=== PATIENT | female | born 1970 | race African-American/Black ===

== ENCOUNTER 2021-10-29 14:04 | Inpatient (IN) | payer OTHER ==
[~2021-10-29] VITALS: Ht 167.6 cm; Wt 81.8 kg
[2021-10-29 15:00] LABS: BASOPHILS % (AUTO) 0.8 % (0.0-2.0); EOSINOPHILS % (AUTO) 0.9 % (1.0-6.0); HEMOGLOBIN 12.9 g/dL (12.0-16.0); LYMPHOCYTES % (AUTO) 20.7 % (22.0-44.0); MEAN CORPUSCULAR HEMOGLOBIN 27.7 pg (26.0-34.0); MEAN CORPUSCULAR HGB CONC 33.1 G/dL (31.0-37.0); MEAN CORPUSCULAR VOLUME 84 fL (80-100); MONOCYTES # (AUTO) 0.2 K/uL (0.1-1.0); MONOCYTES % (AUTO) 4.8 % (2.0-9.0); NEUTROPHILS # (AUTO) 3.5 K/uL (1.8-7.7); NEUTROPHILS % (AUTO) 72.8 % (40.0-70.0); PLATELET COUNT (AUTO) 309 K/uL (150-450); RED BLOOD CELL COUNT(AUTO) 4.67 MIL/uL (4.00-5.20); RED CELL DISTRIBUTION WIDTH 15.3 % (11.5-14.5)
[2021-10-29 15:25] LABS: ANION GAP 10 mmol/L (8-16); CALCIUM, TOTAL 9.9 mg/dL (8.8-10.5); CARBON DIOXIDE 29 mmol/L (22-29); CHLORIDE 102 mmol/L (98-107); CREATININE 1.07 mg/dL (0.60-1.30); GLOMERULAR FILTR. RATE CALC > 60 mL/min (>60); GLUCOSE,RANDOM 90 mg/dL (70-110); POTASSIUM 3.3 mmol/L (3.5-5.1); SODIUM SERUM 141 mmol/L (136-145); UREA NITROGEN, BLOOD 16 mg/dL (7-18)
[2021-10-29 15:33] LABS: PROTHROMBIN TIME 10.4 SEC (9.4-11.6)
[2021-10-29 15:33] LABS: APPEARANCE,URINE CLOUDY (CLEAR); BILIRUBIN,URINE NEGATIVE (NEGATIVE); GLUCOSE, URINE (UA) NEGATIVE (NEGATIVE); KETONES,URINE NEGATIVE (NEGATIVE); LEUKOCYTE ESTERASE ,URINE NEGATIVE (NEGATIVE); NITRATE,URINE NEGATIVE (NEGATIVE); OCCULT BLOOD,URINE TRACE (NEGATIVE); PROTEIN,URINE NEGATIVE (NEGATIVE); UROBILINOGEN,URINE 0.2 mg/dL (<=1.0)
[2021-10-29 15:37] LABS: AMPHET/METH SCREEN,URINE NEGATIVE (NEGATIVE); BARBITURATE SCREEN, URINE NEGATIVE (NEGATIVE); BENZODIAZEPINES SCREEN,URINE NEGATIVE (NEGATIVE); CANNABINOID SCREEN,URINE NEGATIVE (NEGATIVE); COCAINE SCREEN,URINE NEGATIVE (NEGATIVE); METHADONE SCREEN, URINE NEGATIVE (NEGATIVE); OPIATE SCREEN,URINE NEGATIVE (NEGATIVE)
[2021-10-29 15:38] LABS: PHENCYCLIDINE SCREEN,URINE NEGATIVE (NEGATIVE)
[2021-10-29 15:42] LABS: B-TYPE NATRIURETIC PEPTIDE 21 pg/mL (0-100)
[2021-10-29 15:50] LABS: ALANINE AMINOTRANSFERASE 38 U/L (12-78); ALBUMIN 4.5 g/dL (3.4-5.0); ALKALINE PHOSPHATASE 69 U/L (46-116); ASPARTATE AMINOTRANSFERASE 33 U/L (15-37); BILIRUBIN,TOTAL 0.5 mg/dL (0.1-1.0); CREATINE KINASE, TOTAL ONLY 250 U/L (26-192); TOTAL PROTEIN, SERUM 8.5 g/dL (6.4-8.2)
[2021-10-29 15:59] LABS: BACTERIA,URINE None Seen /HPF (None Seen); RBC,URINE 0-2 /HPF (0-2); WBC,URINE None Seen /HPF (0-5)
[2021-10-29 16:00] LABS: SQUAMOUS EPITHELIAL CELL,UR Moderate /LPF (None Seen)
[2021-10-29] MEDS ORDERED: POTASSIUM CHLORIDE 20 MEQ ER TABLET PO ONE (17:00)
[2021-10-29] MEDS ORDERED: SODIUM CHLORIDE 0.9% 1,000 ML IV ONE (17:00)
[2021-10-29] MEDS ORDERED: ASPIRIN 81 MG CHEWABLE TABLET PO ONE (17:00)
[2021-10-29] MEDS ORDERED: ONDANSETRON HCL 4 MG/2 ML VIAL IVP PRN (20:00)
[2021-10-29] MEDS ORDERED: MORPHINE SULFATE 2 MG/ML SYRINGE IVP PRN (20:00)
[2021-10-29] MEDS ORDERED: ATORVASTATIN CALCIUM 40 MG TABLET PO ONE (20:00)
[2021-10-29 20:25] LABS: COVID AG,FIA SOURCE NASAL SWAB
[2021-10-29 20:31] LABS: CHOL/HDL RATIO 2.4 (3.9-5.7); CHOLESTEROL 211 mg/dL (131-200); HDL CHOLESTEROL 89 mg/dL (40-60); LDL CHOL (CALC.) 113 mg/dL (0-130); TRIGLYCERIDES 47 mg/dL (15-150)
[2021-10-29 20:32] LABS: HEMOGLOBIN A1C 6.3 % (3.8-5.6)
[2021-10-29] MEDS ORDERED: HEPARIN SODIUM 25000 UNITS/D5W 250 ML IV PRN (20:45)
[2021-10-29] MEDS ORDERED: HEPARIN SODIUM,PORCINE 5,000 UNITS/ML VIAL IVP ONE (20:45)
[2021-10-29] MEDS ORDERED: HEPARIN SODIUM,PORCINE 5,000 UNITS/ML VIAL IVP PRN ×2 (20:45)
[2021-10-29 21:07] VITALS: BP 119/87
[2021-10-29 21:08] LABS: BASOPHILS % (AUTO) 1.2 % (0.0-2.0); EOSINOPHILS % (AUTO) 0.4 % (1.0-6.0); HEMATOCRIT 36.5 % (36-46); LYMPHOCYTES # (AUTO) 1.6 K/uL (1.0-4.8); LYMPHOCYTES % (AUTO) 24.9 % (22.0-44.0); MEAN CORPUSCULAR HEMOGLOBIN 27.4 pg (26.0-34.0); MEAN CORPUSCULAR VOLUME 83 fL (80-100); MONOCYTES # (AUTO) 0.3 K/uL (0.1-1.0); MONOCYTES % (AUTO) 5.1 % (2.0-9.0); NEUTROPHILS # (AUTO) 4.5 K/uL (1.8-7.7); NEUTROPHILS % (AUTO) 68.4 % (40.0-70.0); PLATELET COUNT (AUTO) 331 K/uL (150-450); RED BLOOD CELL COUNT(AUTO) 4.39 MIL/uL (4.00-5.20); RED CELL DISTRIBUTION WIDTH 15.2 % (11.5-14.5)
[2021-10-29 21:22] LABS: PROTHROMBIN TIME 10.7 SEC (9.4-11.6)
[2021-10-30] VITALS (15 sets, daily range): BP systolic 72–133; BP diastolic 54–86
[2021-10-30] MEDS ORDERED: INFLUENZA VIRUS VACCINE QVS 2021-22 (6MO+)/PF 60 MCG/0.5 ML SYRINGE IM. ONE (01:45)
[2021-10-30] MEDS: METOPROLOL TARTRATE 25 MG TABLET PO SCH ×2 (07:30→21:00)
[2021-10-30 07:51] LABS: BASOPHILS % (AUTO) 1.1 % (0.0-2.0); EOSINOPHILS % (AUTO) 2.4 % (1.0-6.0); HEMATOCRIT 36.3 % (36-46); LYMPHOCYTES # (AUTO) 1.6 K/uL (1.0-4.8); LYMPHOCYTES % (AUTO) 33.9 % (22.0-44.0); MEAN CORPUSCULAR HEMOGLOBIN 28.1 pg (26.0-34.0); MEAN CORPUSCULAR VOLUME 85 fL (80-100); MONOCYTES # (AUTO) 0.2 K/uL (0.1-1.0); MONOCYTES % (AUTO) 5.2 % (2.0-9.0); NEUTROPHILS # (AUTO) 2.7 K/uL (1.8-7.7); NEUTROPHILS % (AUTO) 57.4 % (40.0-70.0); PLATELET COUNT (AUTO) 279 K/uL (150-450); RED BLOOD CELL COUNT(AUTO) 4.26 MIL/uL (4.00-5.20); RED CELL DISTRIBUTION WIDTH 15.4 % (11.5-14.5)
[2021-10-30] MEDS ORDERED: IOHEXOL 300 MG/ML 150 ML VIAL ONE (08:28)
[2021-10-30] MEDS ORDERED: LIDOCAINE/PF 1% 30 ML VIAL ONE (08:28)
[2021-10-30] MEDS ORDERED: SODIUM BICARBONATE 50 MEQ/50 ML VIAL ONE (08:28)
[2021-10-30] MEDS ORDERED: IOHEXOL 300 MG/ML 100 ML VIAL ONE (08:28)
[2021-10-30] MEDS ORDERED: HEPARIN SODIUM 1000 UNITS/NS 1,000 ML ONE (08:28)
[2021-10-30] MEDS ORDERED: IOHEXOL 300 MG/ML 50 ML VIAL ONE (08:28)
[2021-10-30] MEDS ORDERED: NITROGLYCERIN 50 MG/D5% WATER 250 ML ONE (08:53)
[2021-10-30] MEDS ORDERED: VERAPAMIL HCL 2.5 MG/ML 2 ML VIAL ONE (08:53)
[2021-10-30] MEDS: ASPIRIN 81 MG CHEWABLE TABLET PO SCH (09:00)
[2021-10-30] MEDS ORDERED: FentaNYL CITRATE PF 100 MCG/2 ML VIAL ONE (09:28)
[2021-10-30] MEDS ORDERED: MIDAZOLAM HCL 2 MG/2 ML VIAL ONE (09:28)
[2021-10-30] MEDS ORDERED: HEPARIN SODIUM 1000 UNITS/NS 1,000 ML IARTER ONE (10:00)
[2021-10-30] MEDS ORDERED: VERAPAMIL HCL 2.5 MG/ML 2 ML VIAL IARTER ONE ×2 (10:00→10:15)
[2021-10-30] MEDS ORDERED: NITROGLYCERIN/D5W 50 MG/250 ML IV BOTTLE IARTER ONE ×2 (10:00→10:15)
[2021-10-30] MEDS ORDERED: LIDOCAINE 1% 30 ML/SOD BICARB 8.4% 4 ML SQ ONE (10:00)
[2021-10-30] MEDS ORDERED: HEPARIN SODIUM,PORCINE 5,000 UNITS/ML VIAL IVP ONE (10:00)
[2021-10-30] MEDS ORDERED: IOHEXOL 300 MG/ML 150 ML VIAL IARTER ONE (10:00)
[2021-10-30] MEDS ORDERED: SODIUM CHLORIDE 0.9% 500 ML IV ONE ×2 (10:00→12:15)
[2021-10-30] MEDS ORDERED: MIDAZOLAM HCL 2 MG/2 ML VIAL IVP ONE ×2 (10:15)
[2021-10-30] MEDS ORDERED: FentaNYL CITRATE PF 100 MCG/2 ML VIAL IVP ONE ×2 (10:15)
[2021-10-30] MEDS: ACETAMINOPHEN 325 MG TABLET PO PRN (13:24)
[2021-10-30 15:08] LABS: ANION GAP 4 mmol/L (8-16); CALCIUM, TOTAL 9.2 mg/dL (8.8-10.5); CARBON DIOXIDE 29 mmol/L (22-29); CHLORIDE 104 mmol/L (98-107); CREATININE 0.81 mg/dL (0.60-1.30); GLOMERULAR FILTR. RATE CALC > 60 mL/min (>60); GLUCOSE,RANDOM 111 mg/dL (70-110); POTASSIUM 3.5 mmol/L (3.5-5.1); SODIUM SERUM 137 mmol/L (136-145); UREA NITROGEN, BLOOD 12 mg/dL (7-18)
[2021-10-30] MEDS ORDERED: ATORVASTATIN CALCIUM 40 MG TABLET PO SCH (21:00)
[2021-10-31 02:04] VITALS: BP 99/57
[2021-10-31 04:00] VITALS: BP 138/63
[2021-10-31] MEDS: ASPIRIN 81 MG CHEWABLE TABLET PO SCH (08:05)
[2021-10-31] MEDS: METOPROLOL TARTRATE 25 MG TABLET PO SCH (08:05)
[2021-10-31] MEDS: ACETAMINOPHEN 325 MG TABLET PO PRN (08:06)
[2021-10-31 08:48] VITALS: BP 123/75
[2021-10-31 12:25] VITALS: BP 118/69
[2021-10-31] MEDS ORDERED: ASPI81 PO (14:28)
[2021-10-31] MEDS ORDERED: METO25 PO (14:28)
[2021-10-31] MEDS ORDERED: ATOR40TA71 PO (14:28)
== END 2021-10-31 15:20 | disposition home or self-care (01) | DRG 281 ==
LOC: EMS 14:10 → 5N 20:00
PROVIDERS: ADMIT Internal Medicine; ATTEND Internal Medicine
PROC: 4A023N7 Measurement of Cardiac Sampling and Pressure, Left Heart, Percutaneous Approach (ICD-10-PCS; principal; 2021-10-29)
PROC: B2111ZZ Fluoroscopy of Multiple Coronary Arteries using Low Osmolar Contrast (ICD-10-PCS; 2021-10-29)
DX: I21.4 Non-ST elevation (NSTEMI) myocardial infarction (principal); M62.82 Rhabdomyolysis; E87.6 Hypokalemia; E78.5 Hyperlipidemia, unspecified; Z20.822 Contact with and (suspected) exposure to COVID-19; I10 Essential (primary) hypertension; I24.9 Acute ischemic heart disease, unspecified; Z82.49 Family history of ischemic heart disease and other diseases of the circulatory system; Z83.3 Family history of diabetes mellitus
CPT/HCPCS: 71045; 80048; 80053; 80061; 81001; 82550; 83036; 83880; 84484; 85025; 85610; 85730; 93005; 93306; 99291; J1644; J2250; J3010; J3490; J7030; J7040; Q9967; 36415-L1; 36415-TC; Z7610

== ENCOUNTER 2022-02-23 11:23 | Inpatient (IN) | payer OTHER ==
[~2022-02-23] VITALS: Ht 165.1 cm; Wt 85.8 kg
[~2022-02-23 11:23] MED LIST: ASPI81 PO; ATOR40TA71 PO; METO25 PO
[2022-02-23] MEDS ORDERED: SODIUM CHLORIDE 0.9% 1,000 ML IV ONE (11:30)
[2022-02-23] MEDS ORDERED: CHLO25TA3 PO (11:35)
[2022-02-23] MEDS ORDERED: LOSA-382 PO (11:35)
[2022-02-23] MEDS ORDERED: ESTR-7 PO (11:35)
[2022-02-23] MEDS ORDERED: ADENOSINE 3 MG/ML 2 ML VIAL ONE (11:38)
[2022-02-23 11:41] LABS: BASOPHILS % (AUTO) 0.8 % (0.0-2.0); EOSINOPHILS % (AUTO) 2.2 % (1.0-6.0); HEMATOCRIT 41.2 % (36-46); HEMOGLOBIN 13.3 g/dL (12.0-16.0); LYMPHOCYTES # (AUTO) 2.5 K/uL (1.0-4.8); LYMPHOCYTES % (AUTO) 43.1 % (22.0-44.0); MEAN CORPUSCULAR HEMOGLOBIN 27.6 pg (26.0-34.0); MEAN CORPUSCULAR HGB CONC 32.4 G/dL (31.0-37.0); MEAN CORPUSCULAR VOLUME 85 fL (80-100); MONOCYTES # (AUTO) 0.5 K/uL (0.1-1.0); MONOCYTES % (AUTO) 7.8 % (2.0-9.0); NEUTROPHILS # (AUTO) 2.7 K/uL (1.8-7.7); NEUTROPHILS % (AUTO) 46.1 % (40.0-70.0); PLATELET COUNT (AUTO) 406 K/uL (150-450); RED BLOOD CELL COUNT(AUTO) 4.84 MIL/uL (4.00-5.20)
[2022-02-23] MEDS ORDERED: ADENOSINE 3 MG/ML 2 ML VIAL IVP ONE (11:45)
[2022-02-23 11:53] LABS: ANION GAP 17 mmol/L (8-16); CALCIUM, TOTAL 10.2 mg/dL (8.8-10.5); CARBON DIOXIDE 21 mmol/L (22-29); CHLORIDE 102 mmol/L (98-107); GLUCOSE,RANDOM 119 mg/dL (70-110); POTASSIUM 3.3 mmol/L (3.5-5.1); SODIUM SERUM 140 mmol/L (136-145); UREA NITROGEN, BLOOD 18 mg/dL (7-18)
[2022-02-23 11:55] LABS: GLOMERULAR FILTR. RATE CALC > 60 mL/min (>60)
[2022-02-23 11:59] LABS: B-TYPE NATRIURETIC PEPTIDE 38 pg/mL (0-100)
[2022-02-23 12:00] LABS: COVID AG,FIA SOURCE NASOPHARYNGEAL
[2022-02-23 12:16] LABS: ALANINE AMINOTRANSFERASE 31 U/L (12-78); ALBUMIN 4.5 g/dL (3.4-5.0); ALKALINE PHOSPHATASE 71 U/L (46-116); ASPARTATE AMINOTRANSFERASE 22 U/L (15-37); BILIRUBIN,TOTAL 0.5 mg/dL (0.1-1.0); CREATINE KINASE, TOTAL ONLY 146 U/L (26-192); HCG,QUANTITATIVE 2 mIU/mL (0-6); PHOSPHORUS 2.2 mg/dL (2.5-4.9); TOTAL PROTEIN, SERUM 8.1 g/dL (6.4-8.2)
[2022-02-23] MEDS ORDERED: MORPHINE SULFATE 2 MG/ML SYRINGE IVP PRN (12:45)
[2022-02-23] MEDS ORDERED: ACETAMINOPHEN 325 MG TABLET PO PRN (12:45)
[2022-02-23] MEDS ORDERED: POTASSIUM PHOS,M-BASIC-D-BASIC 10 MMOL in DEXTROSE 5%-WATER 100 ML IV ONE (12:45)
[2022-02-23] MEDS ORDERED: ONDANSETRON HCL 4 MG/2 ML VIAL IVP PRN (12:45)
[2022-02-23 13:11] LABS: THYROID STIMULATING HORMONE 1.03 uIU/mL (0.36-3.74)
[2022-02-23] MEDS ORDERED: SODIUM CHLORIDE 0.9% 250 ML IV ONE (13:29)
[2022-02-23 14:33] VITALS: BP 115/71
[2022-02-23] MEDS: HEPARIN SODIUM,PORCINE 5,000 UNITS/ML VIAL SQ SCH (16:00)
[2022-02-23 19:58] VITALS: BP 99/58
[2022-02-23] MEDS: DOCUSATE SODIUM 100 MG CAPSULE PO SCH ×2 (21:00→21:10)
[2022-02-23] MEDS ORDERED: METOPROLOL TARTRATE 25 MG TABLET PO SCH (21:00)
[2022-02-24 00:18] VITALS: BP 102/48
[2022-02-24] MEDS: HEPARIN SODIUM,PORCINE 5,000 UNITS/ML VIAL SQ SCH ×2 (00:24→08:06)
[2022-02-24 05:22] VITALS: BP 111/55
[2022-02-24 07:29] VITALS: BP 119/77
[2022-02-24] MEDS: DOCUSATE SODIUM 100 MG CAPSULE PO SCH (08:06)
[2022-02-24] MEDS ORDERED: ASPIRIN 81 MG CHEWABLE TABLET PO SCH (09:00)
[2022-02-24] MEDS ORDERED: FAMOTIDINE 20 MG TABLET PO SCH (09:00)
[2022-02-24] MEDS ORDERED: METOPROLOL SUCCINATE 25 MG ER TABLET PO SCH (09:00)
[2022-02-24 11:20] VITALS: BP 114/67
[2022-02-24] MEDS ORDERED: METO25XL PO (13:08)
== END 2022-02-24 16:00 | disposition home or self-care (01) | DRG 310 ==
LOC: EMS 11:23 → 5S 12:39
PROVIDERS: ADMIT Internal Medicine; ATTEND Internal Medicine
DX: I47.1 Supraventricular tachycardia (principal); E78.5 Hyperlipidemia, unspecified; Z20.822 Contact with and (suspected) exposure to COVID-19; I10 Essential (primary) hypertension; Z82.49 Family history of ischemic heart disease and other diseases of the circulatory system; Z83.3 Family history of diabetes mellitus; Z79.899 Other long term (current) drug therapy; Z79.82 Long term (current) use of aspirin
CPT/HCPCS: 71045; 80053; 82550; 83735; 83880; 84100; 84443; 84484; 84702; 85025; 93005; 99291; G0378; J0153; J1644; J3490; J7030; J7050; J7060; 36415-L1; 36415-TC